=== PATIENT | female | born 1980 | race American Indian/Alaskan Native ===

== ENCOUNTER 2020-10-21 16:49 | Emergency (ER) | payer MEDICAID ==
--- NOTE | 2020-10-21 17:47 | EDM.PDOC ---
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, not gotten worse not gotten better so pt wondered why it was not better she did agree to management strategies including joseph taping overall has been doing well and making appropriate self-care decisions Treatments GROUP PRESIDENT: Reports: Acetaminophen, Cold Therapy - Related Data Allergies Allergy/AdvReac Type Severity Reaction Status Date / Time codeine Allergy Anxiety Verified 10/21/20 17:09 Penicillins Allergy Airway Verified 10/21/20 17:09 Tightness Past Medical History HEENT History: Reports: None Cardiovascular History: Reports: None Respiratory History: Reports: None Gastrointestinal History: Reports: None Genitourinary History: Reports: None GEOPHYSICAL PROSPECTOR History: Reports: None Musculoskeletal History: Reports: None Neurological History: Reports: None Psychiatric History: Reports: None Endocrine/Metabolic History: Reports: None Hematologic History: Reports: None Immunologic History: Reports: None Oncologic (Cancer) History: Reports: None Dermatologic History: Reports: None - Infectious Disease History Infectious Disease History: Reports: Chicken Pox - Past Surgical History Head Surgeries/Procedures: Reports: None GI Surgical History: Reports: None Female Surgical History: Reports: None Endocrine Surgical History: Reports: None Musculoskeletal Surgical History: Reports: None Oncologic Surgical History: Reports: None Dermatological Surgical History: Reports: None Social & Family History - Family History Family Medical History: No Pertinent Family History - Tobacco Use Years of Tobacco use: 2 Packs/Tins Daily: 0.7 - Caffeine Use Caffeine Use: Reports: Coffee - Recreational Drug Use Recreational Drug Use: No Review of Systems - Review of Systems Review Of Systems: See Below Constitutional: Reports: No Symptoms Eyes: Reports: No Symptoms Ears: Reports: No Symptoms Nose: Reports: No Symptoms Mouth/Throat: Reports: No Symptoms Respiratory: Reports: No Symptoms Cardiovascular: Reports: No Symptoms GI/Abdominal: Reports: No Symptoms Genitourinary: Reports: No Symptoms Musculoskeletal: Reports: Joint Pain Skin: Reports: No Symptoms Neurological: Reports: No Symptoms Psychiatric: Reports: No Symptoms ED EXAM, GENERAL - Physical Exam Exam: See Below Exam Limited By: No Limitations General Appearance: Alert, WD/WN, No Apparent Distress Respiratory/Chest: No Respiratory Distress Cardiovascular: Regular Rate, Rhythm Neurological: Alert, Oriented, CN II-XII Intact, Normal Cognition, No Motor/Sensory Deficits Psychiatric: Normal Affect, Normal Mood Skin Exam: Other (mild swell of left little toe, no ecchymosis, 1+ tender over prox phalange, other bones nontender, inc'd tender over shaft of bone, less so over MTP joint, alignment wnl) Lymphatic: No Adenopathy Course - Vital Signs Last Recorded V/S: Last Vital Signs Temp 36.8 C 10/21/20 16:49 Pulse 93 10/21/20 16:49 Resp 18 10/21/20 16:49 BP 140/71 10/21/20 16:49 Pulse Ox 99 10/21/20 16:49 - Re-Assessments/Exams Free Text/Narrative Re-Assessment/Exam: 10/21/20 17:53 typical hx & PE for toe fx, XR not helpful in management, pt understands and was pleased to get additional instructions on management Departure - Departure Time of Disposition: 17:41 Disposition: Home, Self-Care 01 Condition: Good Clinical Impression: Toe fracture, left Qualifiers: Encounter type: initial encounter Toe: lesser toe Fracture type: closed Phalanx: proximal - Discharge Information *PRESCRIPTION DRUG MONITORING PROGRAM REVIEWED*: Not Applicable *COPY OF PRESCRIPTION DRUG MONITORING REPORT IN PATIENT HANNA: Not Applicable Instructions: Toe Fracture Additional Instructions: You having been doing a fine job of caring for your toe. Continue to use ice for 10 minutes after work, as you have been doing. It can help to take ibuprofen 200 mg 4 tabs and acetaminophen 500 mg 2 tabs up to 3 times a day. One strategy can be to take a dose before and after work. It can help to put a small piece of cotton between the toes and then to joseph tape the toes together. Avoid long walks and long shopping trips. It can sometimes to help to wear a shoe with a stiffer sole that prevents pivoting off the ball of the foot. Be careful, as you have done, to prevent reinjury while it is still injured is important as well. It appears to be healing well. However, it will usually take another 6 weeks or so to get better. See your doctor if it does not get better in that time frame or if you have additional difficulties. Sepsis Event Note (ED) - Evaluation Sepsis Screening Result: No Definite Risk - Focused Exam Vital Signs: Vital Signs Temp Pulse Resp BP Pulse Ox 10/21/20 16:49 36.8 C 93 18 140/71 99
== END 2020-10-21 17:50 | disposition home or self-care (01) ==
LOC: FB.ED 16:49
DX: S92.512A Displaced fracture of proximal phalanx of left lesser toe(s), initial encounter for closed fracture (principal); Z88.5 Allergy status to narcotic agent; Z88.0 Allergy status to penicillin; F17.210 Nicotine dependence, cigarettes, uncomplicated; W22.8XXA Striking against or struck by other objects, initial encounter
CPT/HCPCS: 99283